=== PATIENT | male | born 1960 | race Caucasian/White ===

== ENCOUNTER 2017-07-10 06:24 | Day surgery (SDC) | payer OTHER ==
[2017-07-03 10:08] VITALS: BMI 37.3
[2017-07-10] MEDS ORDERED: Propofol 10 mg/ml Inj (20 ML) ONE ×2 (09:34→10:03)
[2017-07-10] MEDS ORDERED: Midazolam 2 MG/2 ML VIAL ONE (09:34)
[2017-07-10] MEDS ORDERED: Rocuronium 10 mg/ml (10 ml) ONE (09:34)
[2017-07-10] MEDS ORDERED: ceFAZolin 1 gm in NS 2 GM/200 ML BAG IVPB ONE (09:35)
[2017-07-10] MEDS ORDERED: EPINEPHrine 1 mg/ml (1:1000) Inj ONE ×2 (09:36→09:44)
[2017-07-10] MEDS ORDERED: Neostigmine Methylsulfate 3mg/3ml Syringe IV ONE ×2 (11:24→11:27)
[2017-07-10] MEDS ORDERED: Sodium Chloride 0.9% 1,000 ML IV ONE (11:49)
[2017-07-10] MEDS ORDERED: HYDROmorphone 0.5 mg/0.5 ml ISec IVP PRN (11:57)
[2017-07-10] MEDS ORDERED: Sodium Chloride 0.9% 1,000 ML IV SCH (12:00)
[2017-07-10] MEDS ORDERED: Bupivacaine HCl 0.5% PF (10 ml) Inj ONE (12:27)
--- NOTE | 2017-07-10 12:50 | PCM.ANESB7 ---
Adductor Canal Block - Adductor Canal Block Date of Procedure: 07/10/17 Anesthiologist: Suzanne Pre-Procedure Diagnosis: right knee arthroscopy,meniscal repair Procedure Performed: Adductor Canal Block Right - Procedure Adductor Canal Block: The procedure was explained to the patient that it is for the post-operative pain management. Consent was obtained after a thorough discussion with the patient regarding the benefits and possible complications of local anesthetic adductor canal block of the femoral nerve. Standard monitors, as defined by the ASA, were applied to the patient. Time-out was held with the RR nurse to confirm the appropriate block. After applying supplemental oxygen and administering IV Sedation as needed, the patient was placed in supine position with and the operative leg was flexed slightly at the knee and externally rotated as needed, and was kept anatomically stable. The mid-thigh of the ___ right_ lower extremity was exposed. The ultrasound transducer was then applied transversely along the medial aspect, about midway down the thigh and the femoral artery and vein were identified in appropriate relation with the sartorius muscle. At this time, the femoral nerve was visualized lateral to the femoral artery within the canal. After thorough identification, this area area was prepped with Chloroprep solution three times and 1 % Lidocaine was injected subcutaneously for topical anesthesia. At this point, a #22 gauge Stimuplex 4-inch needle was inserted in-plane in a [id number] orientation, and advanced toward the femoral nerve. Advancement was performed carefully under direct ultrasound visualization. After negative aspiration, _20____cc of __0.5___% Bupivacaine__was injected_. Under ultrasound guidance the local anesthetics were observed spreading around the femoral nerve. The needle was removed intact and sterile dressing was applied. The patient had stable vital signs, was conscious and in no apparent distress. The patient tolerated the femoral nerve block well with stable vital signs.
[2017-07-10 13:42] VITALS: BP 167/72; PULSE 82; RESP 18; TEMP 97; O2SAT 99
[2017-07-10] MEDS ORDERED: Diphenhydramine 1% Cream (1 oz) TOP PRN (14:30)
--- NOTE | 2017-07-11 10:37 | PCM.SURG1 ---
Surgeon's Initial Post Op Note - Surgeon's Notes Surgeon: Surinder Espinoza MD [employer]: Ninfa Combs PA-C Type of Anesthesia: General Endo, Block [facility] Pre-Operative Diagnosis: Right knee #1 medial meniscal tear. #2 chondromalacia. #3 synovitis Operative Findings: Right knee #1 medial meniscal tear (posterior root radial tear w/ instability, mid-body free edge small tear, anterior horn complex tear) . #2 chondromalacia MFC/medial plateau/trochlea/patella grade. #3 lateral meniscus tear (free edge white-white zone complex tear). #4 cartialge full thickness defect at medial aspect weight bearing MFC ([id number]), posterior medial aspect of medial plateau ([id number]),. #5 significant synovitis (all 3 compartments). #6 symptomatic medial plica band. #7 hypertrophic inflamed fat pad Post-Operative Diagnosis: Right knee #1 medial meniscal tear (posterior root radial tear w/ instability, mid-body free edge small tear, anterior horn complex tear). #2 chondromalacia MFC/medial plateau/trochlea/patella grade. # 3 lateral meniscus tear (free edge white-white zone complex tear). #4 cartialge full thickness defect at medial aspect weight bearing MFC ([id number]), posterior medial aspect of medial plateau ([id number]),. #5 significant synovitis (all 3 compartments). #6 symptomatic medial plica band. #7 hypertrophic inflamed fat pad Operation Performed: Right knee arthroscopic. #1 all inside medial meniscal repair. #2 partial lateral menisectomy. #3 extensive synovectomy. #4 chondroplasty and microfracture trochlea and MFC. #5 PRP injection Specimen/Specimens Removed: specimen= none. complications= none. tourniquet time= 0 min. implants= Linvatec meniscal all inside repair system, multiple implants for medial meniscal repair Estimated Blood Loss: EBL {In ML}: 3 Blood Products Given: N/A Drains Used: No Drains Post-Op Condition: Good Date of Surgery/Procedure: 07/10/17 Time of Surgery/Procedure: 19:00
--- NOTE | 2017-07-27 05:30 | OP ---
PROCEDURE DATE: 07/10/2017 PREOPERATIVE DIAGNOSES: Right knee, 1. Medial meniscal tear (posterior root tear). 2. Chondromalacia. 3. Synovitis. POSTOPERATIVE DIAGNOSES: Right knee, 1. Medial meniscal tear (posterior root radial tear with instability, midbody free edge tears, anterior horn complex tear). 2. Chondromalacia medial femoral condyle/medial plateau/trochlear/patella. 3. Lateral meniscus tear (free edge white-white zone, complex tear at midbody and anterior horn complex tear). 4. Cartilage full thickness defects (at medial aspect weightbearing medial femoral condyle 3 mm x 9 mm, posterior medial aspect of medial plateau 3 mm x 5 mm, medial aspect of trochlea 5 mm x 6 mm). 5. Significant synovitis (all three compartments). 6. Symptomatic medial plica band. 7. Hypertrophic inflamed fat pad. PROCEDURE: Right knee arthroscopic; 1. All-inside medial meniscal repair. 2. Partial lateral meniscectomy. 3. Extensive synovectomy of all three compartments (including resection of medial plica band, debridement of hypertrophic inflamed fat pad, extensive synovectomy of all three compartments). 4. Chondroplasty and microfracture of cartilage injury to trochlea, medial femoral condyle, medial tibial plateau. 5. Intraarticular PRP injection. SURGEON: Surinder Espinoza MD LOGISTICS ANALYST: Ninfa Combs PA-C JUSTIFICATION FOR LOGISTICS ANALYST: Ninfa Combs is a certified physician assistant winemaker, whose skilled surgical service was an absolute necessity for successful completion of the procedure as he provided skilled surgical assistance with positioning of the patient, positioning of extremity, management of the surgical feng, retraction of neurovascular structures, management of arthroscopic equipment, facilitating all inside medial meniscal repair and root repair, facilitating chondroplasty and microfracture of medial femoral condyle and trochlea, handling of arthroscopic equipment including extensive synovectomy and resection plica band and debridement of fat pad as well as partal lateral meniscectomy, wound closure, fitting and placement of postop hinged knee brace. Ninfa Combs was present for the entire case, who was an absolute necessity for the successful completion of the procedure. TYPE OF ANESTHESIA: General endotracheal anesthesia with a postop regional nerve block placed by anesthesia staff in PACU. SPECIMEN: None. COMPLICATIONS: None. TOURNIQUET TIME: 0 minutes. ESTIMATED BLOOD LOSS: 3 mL. DRAINS: None. DISPOSITION: Patient was extubated and transferred to PACU in stable condition and tolerated the procedure well. IMPLANTS: L[employer]atec Meniscal All-Inside Repair System with a total of 24 implants used for the medial meniscus root repair and stabilization. INDICATIONS FOR SURGERY: The patient is a 57-year-old male with a past medical history significant for diabetes and GERD who presented to the office for the first time on 05/26/2017 with right knee pain and disability since an injury at work on 04/01/2017. This is a workman's comp case with the date of injury being 04/01/2017 at work. 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 He states that on 04/01/2017, he was working at a building and checking on a boiler when he stepped on what he interpreted as a piece of broken cement twisting his right knee, landing on his right knee, resulting in an immediate 10/10 pain localized to the right knee medial aspect with swelling. He had difficulty with weightbearing as well. He went to the emergency room at [facility], and after evaluation and review of imaging by ER staff, he was diagnosed with a bad sprain. He was then [facility] by [facility]. He was referred to physical therapy, and after the pain continued and conservative treatment failed, he was referred for an MRI. MRI of the right knee done at [facility] that worked in [place] on 05/09/2017 was read as, 1. There is an incomplete tear of the posterior root attachment of the medial meniscus with partial extrusion of the body. 2. Acute on chronic grade 1 MCL sprain and chronic sprain or degeneration of the cruciate ligaments. 3. Extensor tendinosis and enthesopathy. 4. Patellofemoral and medial compartment moderate to advance chondral loss with early subchondral wear pattern. 5. Moderate sized effusion. On initial evaluation in the office on physical examination, he had exam significant for positive Anushka and significant tenderness to palpation at the medial joint with crepitance along the medial joint and a palpable extruded medial meniscus. With his degree of pain and limping, he was indicated for a cortisone mixture injection done in the office on initial presentation on 05/26/2017 which resulted in near complete resolution of local right knee pain. The patient returned to normal gait. He also complained of multiple episodes of giving way and almost falling, and for that, he was placed in an after hinged knee brace for support and safety. On his followup in the office on 06/30/2017, he stated that the pain had returned and was now rated 8/10, waking him up in night and making his ADLs difficult as well as his job responsibilities and working. The patient has not met significant work time since his injury and has been able to return to work despite his high level of pain. After reviewing the MRI with him, and his X-rays taken in the office, that still showed that the medial joint line was still maintained. He was indicated for arthroscopic surgery. He was indicated for right knee arthroscopic medial meniscus root repair versus partial meniscectomy, possible partial lateral meniscectomy versus lateral meniscus repair, synovectomy, chondroplasty versus microfracture, and all related indicated arthroscopic procedures. The risks, benefits, and alternatives to the procedure were discussed at length with the patient with the risks including but not limited to infection, neurovascular damage, need for further surgery, failure to repair, chondrolysis, accelerated degenerative wear pattern, need for further surgery, development of chronic pain and disability, development of blood clots including DVT and PE, anesthesia reactions including . After answering of his questions, he stated that he understood the risks and wished to proceed with surgery. I reviewed at length with him the postop rehab protocol after this type of surgery, and he stated that he understood the need for compliance with the rehab protocol in order to maximize his chances of having successful outcome after surgery. He was referred to his primary care doctor for preadmission testing, and the procedure was scheduled at [facility] on 07/10/2017. He watched surgical animation videos and diagnoses animation videos and stated that he had a good understanding of the procedures to be done as well as his diagnoses. We obtained authorization through the [employer] comp carrier and the procedure was scheduled. PROCEDURE IN DETAIL: The patient was identified in the preoperative holding area and the right knee was marked for surgery. Once again as described above, the risks, benefits, and alternatives of the procedure were discussed at length with the patient and informed consent was obtained. After a brief discussion with anesthesia staff, perioperative IV antibiotics in the form of 2 gm Ancef were administered, and the patient was taken to the operating room, placed on a well-padded operating room table without bony prominences and superficial neurovascular structures well-padded. An initial time-out was done with the surgeon, anesthesia staff, OR staff, all in agreement with the patient, procedure being done, and the extremity being operated on. General anesthesia was administered without difficulty or complication. An examination under anesthesia was then carried out. Examination under anesthesia: Right knee with full range of motion compared to contralateral knee. At high flexion, there is a palpable extruded medial meniscus that can be felt and seen, no instability with negative anterior drawer and internal rotation and external rotation and neutral, negative posterior drawer, negative Eyal, negative reverse Eyal, negative pivot shift, negative reverse pivot shift, negative dial test, negative posterolateral corner drawer test, negative opening to medial or lateral joint lines at 0 or 30 degrees varus and valgus stress, patella with normal tracking, there was a palpable medial plica band that engaging the patella throughout range of motion at approximately 30 degrees flexion that was reproducible that appears to be asymptomatic medial plica band, as stated before the medial meniscus appeared to be extruded popping in and out of the joint pass 90 degrees of flexion. No swelling, no warmth, no erythema, and skin was intact. Continuation of procedure: The right lower extremity was prepped and draped in a standard sterile fashion after a tourniquet was placed high on the right thigh but never inflated. A final time-out was done with the surgeon, anesthesia staff and OR staff, all in agreement with the patient, procedure being done, and extremity to be operated on. A 50 mL of normal saline was used to insufflate the knee joint with the use of a spinal needle. Anterior lateral portal was created with stab incision to skin, down to subcutaneous tissue, down to level of the capsule. Blunt arthroscopic trocar and cannula were inserted into the suprapatellar pouch. Arthroscopic camera was inserted and insufflation with arthroscopic fluid was begun. With the use of spinal needle localization, the anterior medial portal was created. Stab incision through skin, down to subcutaneous tissue, down to level of the capsule. An accessory cannula was inserted and the knee joint was copiously irrigated for better visualization and removal of debris. Diagnostic arthroscopy was then carried out with the use of an arthroscopic probe. Diagnostic arthroscopy: Attention was first turned towards the suprapatellar pouch where there was no evidence of adhesions or loose bodies. Patellofemoral joint exhibited significant chondromalacia grade 2 to 3 throughout with some unstable cartilage flaps. At the medial aspect of the trochlea, there was a full thickness cartilage defect measuring 6 mm x 5 mm at the junction of the medial trochlea and the medial femoral condyle. Patella was well seated within the groove with no evidence of instability. Attention was then turned towards the medial gutter where there was no loose bodies but there was an obvious thickened symptomatic medial plica band abutting the anterior aspect of the medial femoral condyle that appeared to be symptomatic. Attention then turned towards the medial compartment. With the use of arthroscopic probe, the medial meniscus was carefully evaluated and indeed at the junction of the posterior horn and the posterior root, there was a radial tear that did have some remaining posterior root fibers intact but had approximately 80% of the fibers torn from the white-white zone extending to the red-red zone and was unstable with significant hypermobility of the medial meniscus posterior horn overall. The posterior horn also exhibited a free edge tear that was complex in nature at the white-white zone as well as a complex anterior horn tear that was irreparable. The medial compartment, medial femoral condyle and medial tibial plateau exhibited grade 3 chondromalacia with some unstable cartilage fragments as well as a full thickness cartilage injury component at the medial aspect of the medial femoral condyle weight-bearing surface measuring 3 mm x 9 mm and at the posterior medial corner of the medial plateau measuring 3 mm x 5 mm. There appeared to be a baseline chondromalacia, early degenerative process in the medial compartment within an acute component of full thickness cartilage injury and meniscus tear of the posterior root. Attention then turned towards the notch where intact ACL and PCL were seen. All along the anterior aspect of the knee joint was hypertrophic synovial tissue that appeared to be causing impingement as well as anterior hypertrophic inflamed fat pad that also appeared to be symptomatic. The lateral compartment exhibited grade 1 chondromalacia at best of the lateral femoral condyle and lateral tibial plateau but overall intact cartilage with lateral meniscus exhibiting a small free edge tear at the midbody and complex tearing of the anterior horn that was irreparable. TREATMENT: Extensive synovectomy: Attention was first turned towards debriding all the inflamed tissue and removing the impingement. An extensive synovectomy was carried out with the use of arthroscopic radiofrequency and arthroscopic shaver including debridement and resection of the hypertrophic fat pad while maintaining good hemostasis, resection of the medial symptomatic plica band while maintaining good hemostasis, extensive synovectomy of all three compartments removing all the inflamed hypertropic synovium. Once this was completed to satisfaction, attention was then turned towards the lateral compartments. Partial lateral meniscectomy: With the use of the arthroscopic shaver, radiofrequency ablation and arthroscopic meniscal biters, a partial lateral meniscectomy was carried out establishing a smooth contour of the midbody free edge tear as well as the anterior horn complex tearing. Most of the anterior horn debridement and partial lateral meniscectomy was carried out with the radiofrequency probe minimizing how much of the lateral meniscus tissue was removed overall. All in all partial lateral meniscectomy established a smooth contour and remaining stable lateral meniscus good quality tissue remained. Overall approximately 10% overall of the lateral meniscus had been removed mostly at the anterior horn. Once the partial lateral meniscectomy was carried out to satisfaction, attention was then towards the medial compartment. All-inside medial meniscus repair: With the use of the probe, the posterior root tear was carefully evaluated, and as stated before, it was an 80% partial thickness root tear extending from the white-white zone to the red-red zone right at the posterior root attachment. With the use of the [employer] All-inside Meniscal Repair System, approximately 24 implants were used overall in a crisscross pattern on the superior aspect of the meniscus and the inferior aspect of the meniscus reapproximating and stabilizing both the posterior horn and the posterior root tear. The resulting construct was a stable root repair as well as stabilization of the hypermobility of the medial meniscus. We first started with a direct root repair/radial tear repair at the posterior root with a crisscross pattern with four implants with good capsular-sided fixation placed on the superior aspect of the tear at the superior aspect of the posterior root and medial meniscus. This was reinforced with another sequence of four implants with good capsular-sided fixation and alternating horizontal and vertical mattress crisscross repair. This was then repeated on the inferior aspect with placement of four implants and then another four implants for a total of 16 implants at the root repair. Four implants were then placed at the posterior horn stabilizing it with good capsular-sided fixation with alternating vertical and horizontal mattress sutures. Finally two more implants were used to reenforce the radial root repair. With the use of arthroscopic shaver and radiofrequency ablation, the white-white zone portions of the radial tear were debrided establishing a smooth contour to the construct. With the use of arthroscopic probe, this was tested and was found to be very stable and a satisfactory radial tear repair stabilizing and preserving the medial meniscus tissue. At the posterior horn, white-white zone, there was a complex tearing as well and a smooth contour was established with the use of arthroscopic meniscal biters, arthroscopic shaver and radiofrequency ablation. The anterior horn also underwent debridement with the use of arthroscopic radiofrequency ablation and arthroscopic shaver establishing a smooth contour. All in all good joint preservation technique was employed and a medial meniscus was stabilized and repaired, removing less than 15% overall of the medial meniscus. Attention was then turned towards the chondral injuries. Medial femoral condyle and trochlear chondroplasty and microfracture: With the use of arthroscopic shaver and curette, the three areas of injury at the medial femoral condyle, posterior medial tibial plateau, and the medial aspect of the trochlea were debrided off unstable cartilage fragments and a smooth contour and stable rim of cartilage was established. With the use of the microfracture power pick, multiple microfracture holes were placed in all of the defects with good bloody return with fat globules showing after the microfractures were complete. All in all, a good microfracture technique was used as a joint preservation for the full thickness cartilage injuries of the medial aspect of the medial femoral condyle, the posterior medial aspect of the tibial plateau and the medial aspect of the trochlea. Once this was carried out to satisfaction, the arthroscopic wes were used to perform the chondroplasty of all three areas as well with the unstable grade 3 chondromalacia cartilage flaps resected and a smooth contour established. Arthroscopic shaver and radiofrequency ablation were then used to complete the extensive synovectomy again while maintaining good hemostasis. All arthroscopic debris and fluid were then removed from the knee joint after final arthroscopic imaging was taken. With the help of anesthesia staff, PRP injection was carried out. PRP injection: PRP of 7 mL were obtained after anesthesia staff performed a peripheral stick and the peripheral blood was then spun in the ArthMOGL centrifuge yielding 7 mL of PRP which were injected under direct visualization intraarticularly. Once the PRP injection was carried out to satisfaction, arthroscopic portals were then reapproximated with 2-0 plain Vicryl sutures for deep tissue followed by 3-0 plain Monocryl suture for skin. Sterile dressings were applied, followed by a layer of sterile cast padding from the toes up to the superior thigh, followed by a layer of compressive Vamsi wrap from the toes up to the superior thigh. The knee was then placed in a postop hinged knee brace fitted and placed for the patient prior to extubation at the end of the surgery, locked at 0 degrees extension. Once the brace was in position, the patient was extubated and transferred to PACU in stable condition and tolerated the procedure well. JUSTIFICATION FOR BILLING AND CODIN. An all-inside medial meniscal repair was carried out with stabilization of the posterior root repair and the hypermobility of the medial meniscus, and therefore all-inside arthroscopic media meniscal repair was coded and billed. 2. A partial lateral meniscectomy was carried out, and therefore, coded and billed. 3. An extensive synovectomy of all three compartments including resection of the symptomatic medial plica band, debridement of the hypertropic inflamed fat pad, extensive synovectomy of all three compartments while maintaining good hemostases. Therefore, an extensive synovectomy of more than two compartments was coded and billed. This was beyond the usual and customary synovectomy and debridement for better visualization but was also done as treatment for the multiple pathology cited above. This also required significant surgical time. 4. Chondroplasty and microfracture. As stated before, there were acute cartilage zones of injury that were full thickness at the medial femoral condyle weightbearing aspect, medial aspect of the trochlea/patellofemoral joint, posterior, medial tibial plateau which underwent microfracture and chondroplasty, and therefore, chondroplasty and microfracture were coded and billed. 5. PRP injection: A PRP injection intraarticular was carried out, and therefore, coded and billed. 6. A postop hinge knee brace was fitted and placed for the patient provided by my office and was of medical necessity to protect the meniscus repair and provide stability for knee joint to maximize chance of having successful outcome after surgery, and therefore, was coded and billed. DISPOSITION: The patient will be discharged home once he has recovered from anesthesia. He was instructed to keep the dressings and the brace, clean, dry and intact until he follows up in the office. He has an appointment at [facility] within one week. He is instructed to be strict nonweightbearing to the right lower extremity. He was given a prescription for Percocet for pain control. He has been given a prescription for Lovenox for DVT prophylaxis 40 mg subcutaneous injections for two weeks once daily. He will contact me directly with any questions or concerns. Surinder Espinoza MD
== END 2017-07-10 16:08 | disposition home or self-care (01) ==
LOC: C.SDS 06:24
PROVIDERS: ATTEND Student in an Organized Health Care Education/Training Program
DX: S83.231A Complex tear of medial meniscus, current injury, right knee, initial encounter (principal); M94.261 Chondromalacia, right knee; M65.9 Synovitis and tenosynovitis, unspecified; Z79.4 Long term (current) use of insulin; Z79.899 Other long term (current) drug therapy; E11.9 Type 2 diabetes mellitus without complications; I10 Essential (primary) hypertension; Z87.891 Personal history of nicotine dependence; I25.10 Atherosclerotic heart disease of native coronary artery without angina pectoris; J45.909 Unspecified asthma, uncomplicated; Z88.8 Allergy status to other drugs, medicaments and biological substances; Z91.041 Radiographic dye allergy status; Z79.84 Long term (current) use of oral hypoglycemic drugs; E78.2 Mixed hyperlipidemia; Z96.651 Presence of right artificial knee joint; S83.271A Complex tear of lateral meniscus, current injury, right knee, initial encounter
CPT/HCPCS: 29876; 29879; 29881; 82948; 88304; J0171; J0690; J1170; J2250; J2405; J2704; J2710; J3010; J7040